=== PATIENT | male | born 1950 | race Caucasian/White ===

== ENCOUNTER 2017-11-29 11:05 | Outpatient (CLI) | payer MEDICARE, OTHER ==
--- NOTE | 2017-11-29 15:41 | Diagnostic Imaging Report ---
Indication: Cough Technique: 2 views of the chest Comparison: For 2014 Findings: Lungs and pleural spaces are clear. The heart size is normal. The bones are unremarkable. No significant interim change. Impression: Negative
== END 2017-11-29 13:05 | disposition home or self-care (01) ==
LOC: RAD 11:05
DX: R05 Cough (principal)
CPT/HCPCS: 71046